=== PATIENT | male | born 1980 | race Caucasian/White ===

== ENCOUNTER 2021-03-16 01:13 | Emergency (ER) | payer OTHER ==
[~2021-03-16] VITALS: Ht 177.8 cm; Wt 106.6 kg
[2021-03-16] MEDS ORDERED: SEROQUEL400 MG PO (01:25)
[2021-03-16 01:58] LABS: ABSOLUTE NEUTROPHILS 4.3 thou/uL (1.4-8.2); BASOPHILS 0.5 % (0.0-2.0); HEMATOCRIT 42.8 % (42.0-52.0); HEMOGLOBIN 14.9 gm/dL (14.0-18.0); MCH 30.9 pg (26.0-34.0); MCHC 34.7 g/dL (28.0-37.0); MCV 89.1 fL (80.0-100.0); PLATELET COUNT 224 thou/uL (150-400); POLYS 51.5 % (36.0-66.0); RDW 12.6 % (10.5-14.5); WBC 8.4 thou/uL (4.0-11.0)
[2021-03-16 02:05] LABS: URINE BILIRUBIN NEGATIVE (Negative); URINE BLOOD NEGATIVE (Negative); URINE CLARITY CLEAR; URINE COLOR YELLOW; URINE GLUCOSE-RANDOM* NEGATIVE (Negative); URINE KETONES NEGATIVE (Negative); URINE LEUKOCYTES-REFLEX NEGATIVE (Negative); URINE NITRITE-REFLEX NEGATIVE (Negative); URINE PROTEIN (DIPSTICK) NEGATIVE (Negative); URINE UROBILINOGEN 0.2 E.U./dl (0.2-1.0)
[2021-03-16 02:11] LABS: ANION GAP 10 mmol/L (7-16); BUN 10 mg/dL (7-18); CALCIUM 8.3 mg/dL (8.5-10.1); CHLORIDE 104 mmol/L (98-107); CO2 30 mmol/L (21-32); CREATININE 1.2 mg/dL (0.7-1.3); GLUCOSE 111 mg/dL (74-106); POTASSIUM 3.4 mmol/L (3.5-5.1); SODIUM 144 mmol/L (136-145)
[2021-03-16 02:14] LABS: ALBUMIN 3.7 g/dL (3.4-5.0); SALICYLATE < 2.8 mg/dL (2.8-20.0); SGOT 35 U/L (15-37); SGPT 52 U/L (16-63); TOTAL BILIRUBIN 0.5 mg/dL (0.2-1.0); TOTAL PROTEIN 7.4 g/dL (6.4-8.2)
[2021-03-16 02:17] LABS: AMP/METHAMP Negative (Negative); BARBITURATES Negative (Negative); BENZODIAZEPINES Negative (Negative); COCAINE Negative (Negative); METHADONE Negative (Negative); OPIATES Negative (Negative); PCP Negative (Negative)
--- NOTE | 2021-03-16 07:28 | EKG ---
[address] [address] ELECTROCARDIOGRAM REPORT Name: DECLAN HARRELL Room #: REG [facility]#: [id number] Admission: 03/16/21 Attend Phys: Discharge: Date of : 76 Report #: [id number] [facility] ED Test Date: 2021-03-16 Test Time: 01:27:08 Pat Name: DECLAN HARRELL Department: Room: Gender: M Medical Assistant Cardiology: : 1980 Requested By: Bill Alvarez Order Number: [id number] MD: Olman Gonzalez Measurements Intervals [place] Rate: 100 P: 14 MS: 161 QRS: 3 QRSD: 83 T: 27 QT: 345 QTc: 445 Interpretive Statements Sinus tachycardia Low voltage, precordial leads No previous ECG available for comparison Electronically Signed On 03-16-2021 7:28:06 CDT by Olman Gonzalez [email or web address] <ELECTRONICALLY SIGNED> By: Olman Gonzalez MD, [facility] 03/16/21 0728 0127 0127 Olman Gonzalez MD, FACC /EPI
[2021-03-16 13:26] VITALS: BP 124/87
== END 2021-03-16 18:41 | disposition short-term general hospital (02) ==
LOC: ER 01:13
PROVIDERS: Emergency Medicine
DX: R45.851 Suicidal ideations (principal); F41.9 Anxiety disorder, unspecified; Z79.899 Other long term (current) drug therapy; Z20.822 Contact with and (suspected) exposure to COVID-19